=== PATIENT | female | born 1980 | race Two or more races ===

== ENCOUNTER 2023-02-27 09:54 | Outpatient (CLI) | payer OTHER | END 2023-02-27 10:09 | disposition home or self-care (01) | LOC: MAMO-SONO 09:54 | PROVIDERS: ATTEND Obstetrics & Gynecology | DX: Z12.31 Encounter for screening mammogram for malignant neoplasm of breast (principal); N60.22 Fibroadenosis of left breast; N60.21 Fibroadenosis of right breast ==

== ENCOUNTER → 2024-01-08 | Outpatient (CLI) | payer OTHER ==
[~2024-01-08] MED LIST: ATIVAN1 M1 PO
== END | disposition home or self-care (01) ==
LOC: TOM 07:40 → RAD 07:40
DX: R10.9 Unspecified abdominal pain (principal)

== ENCOUNTER 2024-02-11 07:13 | Outpatient (CLI) | payer OTHER | END 2024-02-11 07:20 | disposition home or self-care (01) | LOC: TOM 07:13 | PROVIDERS: ATTEND General Practice | DX: N20.0 Calculus of kidney (principal) ==

== ENCOUNTER 2024-11-04 11:13 | Outpatient (CLI) | payer OTHER | END 2024-11-04 11:31 | disposition home or self-care (01) | LOC: MAMO-SONO 11:13 | PROVIDERS: ATTEND General Practice | DX: N20.0 Calculus of kidney (principal); N61.1 Abscess of the breast and nipple ==

== ENCOUNTER 2025-01-04 13:18 | Outpatient (CLI) | payer OTHER | END 2025-01-04 13:22 | disposition home or self-care (01) | LOC: SONOGRAMA 13:18 | PROVIDERS: ATTEND Obstetrics & Gynecology | DX: R10.32 Left lower quadrant pain (principal) ==